=== PATIENT | male | born 1995 | race Caucasian/White ===

== ENCOUNTER 2018-02-06 06:37 | Emergency (ER) | payer BC, OTHER ==
[~2018-02-06] VITALS: Ht 172.7 cm; Wt 72.6 kg
[2018-02-06 06:37] VITALS: BP_SYST 133
[2018-02-06] MEDS ORDERED: ACETAMINOPHEN 500 MG TABLET PO ONE (07:00)
[2018-02-06 07:50] LABS: STREPTOCOCCUS A SCREEN (RAPID) NEGATIVE (NEGATIVE)
[2018-02-06 07:55] VITALS: BP_SYST 128
[2018-02-06 08:02] LABS: INFLUENZA A&B ANTIGEN SCREEN NEGATIVE FOR A & B (NEGATIVE)
== END 2018-02-06 07:55 | disposition home or self-care (01) ==
LOC: SED 06:37
DX: J02.9 Acute pharyngitis, unspecified (principal)
CPT/HCPCS: 36415; 86403; 86710; 87081; 99284